=== PATIENT | male | born 1970 | race Caucasian/White ===

== ENCOUNTER → 2022-08-05 12:36 | Outpatient (BNVA) | payer BC, SELFPAY | PROVIDERS: Visit Provider Nurse Practitioner Family | DX: M47.812 Spondylosis without myelopathy or radiculopathy, cervical region (principal); M54.2 Cervicalgia; G43.909 Migraine, unspecified, not intractable, without status migrainosus | CPT/HCPCS: 72040 ==

== ENCOUNTER → 2022-09-01 08:04 | Outpatient (BNVA) | payer BC, SELFPAY | PROVIDERS: PCP Nurse Practitioner Family; Visit Provider Orthopaedic Surgery | DX: M25.562 Pain in left knee (principal); M25.561 Pain in right knee | CPT/HCPCS: 73560; 73565 ==

== ENCOUNTER → 2022-10-06 09:15 | Outpatient (BNVA) | payer BC, SELFPAY | PROVIDERS: PCP Nurse Practitioner Family; Visit Provider Orthopaedic Surgery | DX: S46.011A Strain of muscle(s) and tendon(s) of the rotator cuff of right shoulder, initial encounter (principal); X58.XXXA Exposure to other specified factors, initial encounter | CPT/HCPCS: 73030 ==

== ENCOUNTER 2022-11-09 08:29 | Outpatient (CLI) | payer BC, SELFPAY ==
--- NOTE | 2022-11-09 08:00 | MR_ITS ---
WS: [id number] MRI RIGHT SHOULDER HISTORY: Pain and weakness COMPARISON: Radiographs 10/06/2022 TECHNIQUE: Multiplanar sequences of the shoulder joint are submitted. Moderate AC joint narrowing with soft tissue hypertrophy and mild encroachment upon the supraspinatus . Moderate bursal distention of the subacromial and subdeltoid bursa with small loose bodies also pre sent within the fluid. No os acromion. Biceps tendon in normal position with mild fluid in the biceps tendon sheath. High riding humeral head complete supraspinatus tendon tear with retraction to the superior humeral h ead. There is thinning of the retracted tendon. There is very slight increased signal also within the retracted tendon. Mild supraspinatus atrophy with no edema. Abnormal distal infraspinatus tendon. In creased signal at the attachment site with additional marked fraying along the distal 3 to 4 cm of th e tendon with fluid extending along the tendon. Subscapularis tendon is intact. Loss of the normal cartilage surrounding the humeral head. No fracture. Abnormal configuration of the superior labrum. There is also increased signal in the superior labrum. MR/MR shoulder RT wo con* [id number] IMPRESSION: 1. 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 2. Complete tear supraspinatus tendon with retraction to the superior humeral head. Fraying and thinning of the distal supraspinatus tendon. 3. Large insertion site tear of the infraspinatus tendon. The distal 3 to 4 cm of the infraspinatus tendon with abnormal signal and surface fraying. 4. Moderate bursal distention of the subacromial and subdeltoid bursa with loo se bodies. 5. Abnormal superior labrum. 6. Mildly high riding humeral head. 7. Mild supraspinatus muscle atrophy. 8. Mild biceps tendon tenosynovitis.
== END 2022-11-09 08:30 | disposition home or self-care (01) ==
LOC: RAD 08:38
PROVIDERS: PCP Nurse Practitioner Family; Visit Provider Orthopaedic Surgery
DX: M75.121 Complete rotator cuff tear or rupture of right shoulder, not specified as traumatic (principal); M25.511 Pain in right shoulder
CPT/HCPCS: 73221

== ENCOUNTER 2022-12-09 07:44 | Day surgery (SDC) | payer BC, SELFPAY ==
[2022-12-08 16:49] VITALS: BMI 33.7
[2022-12-09] VITALS (7 sets, daily range): BP systolic 147–173; BP diastolic 76–96; PULSE 74–80; RESP 16–17; TEMP 36.1–36.5; O2SAT 93–100
[2022-12-09] MEDS: acetaminophen 500 mg Tablet 1000 MG PO (08:20)
[2022-12-09] MEDS: sodium chloride 0.9% 1,000 ML 30 ML IV ×2 (08:21→12:21)
[2022-12-09] MEDS: gabapentin 300 mg Capsule PO (08:21)
[2022-12-09] MEDS: CELEcoxib 200 mg Capsule 400 MG PO (08:21)
--- NOTE | 2022-12-09 08:50 | ANES.PREANE2 ---
Pre-Anesthetic Assessment Height/Weight: Height 1.78 m Weight 106.594 kg Temp Pulse Resp BP Pulse Ox O2 Del Method 97.7 F 80 16 148/76 96 12/09/22 08:13 12/09/22 08:13 12/09/22 08:13 12/09/22 08:13 12/09/22 08:13 12/09/22 08:13 Preop Diagnosis: Rotator cuff tear right shoulder Operation Date: 12/09/22 09:25 Proposed Procedures p right shoulder arthroscopy with rotator cuff repair/ 03125,M75.101(Right) - Jose Jay MD s Rotator Cuff Repair - Arthroscopy(Right) - Jose Jay MD Familial anesthetic complications: None Was Beta Jose Maria taken within 24 hours: N/A Was Clonidine taken within 24 hours: N/A Last intake: Intake Last Liquid Date 12/09/22 Last Liquid Time 04:00 Last Solid Date 12/08/22 Last Solid Time 18:00 Social Tobacco and No alcohol Exam alert, oriented x 3, clear to auscultation bilaterally and regular rate & rhythm Airway Mallampati: Class III Dentition: full Comments: Comments: full holloway CV/HEM Hypertension > 4 METS Anesthetic Plan ASA status: 2 Anesthesia: General and Regional (specify below) Risk of > 500 ml blood loss (7ml/kg in children): No Medications/Allergies Home Medications Medication Instructions Recorded Confirmed Last Taken Type naproxen 500 mg tablet (Naprosyn) 500 mg PO BID 1 month #60 tabs 09/01/22 12/09/22 12/07/22 Rx tramadol 50 mg tablet 50 mg PO Q6H PRN pain 7 days #30 12/03/22 12/09/22 12/09/22 04:00 Rx tabs lisinopril 20 mg tablet 20 mg PO DAILY 12/08/22 12/09/22 12/08/22 History Allergies Allergy/AdvReac Type Severity Reaction Status Date / Time No Known Allergies Allergy Verified 12/09/22 08:06 Current Medications Generic Name Dose Route Start Last Admin Trade Name Freq PRN Reason Stop Dose Admin Sodium Chloride 1,000 mls @ 30 mls/hr 12/09/22 08:00 12/09/22 08:21 Sodium Chloride 0.9% IV 12/10/22 07:59 30 mls/hr .Q24H [facility] Administration PFSH Anesthesia Social History Smoking and tobacco status: never smoked Alcohol intake: never Data Anesthesia Cardiac Studies: No Data to Display
--- NOTE | 2022-12-09 08:51 | ANES.PROC ---
Anesthesia Procedures Procedure/Date: 12/09/22 Nerve Block ^: Nerve Block 1: Main Anesthesia: general anesthesia Time Out Performed: Yes Consent: requested by attending/covering physician, from patient, risks and benefits reviewed and patient agrees to proceed Nerve block location: interscalene (R) Anesthesia monitors applied: pulse oximetry Nerve block position: semi sitting Anesthetic Used: ropivicaine 0.5% (20 ml) and with decadron (4 mg) Ultrasound used to: recognize landmarks, visualize and ID brachial plexus, in supraclavicular region and visualize and ID interscalene groove Nerve Stimulator Used?: No Interscalene/Femoral BLK: 2 stimuplex 22 g needle used for position and inplane approach, visualize local anesthetic spread and no vascular puncture identified Injection: neg aspiration of heme Patient Tolerated Procedure: well Complications: none
--- NOTE | 2022-12-09 09:44 | W.PM.OPSUD ---
Surgery/Procedure H&P Update DATE OF PROCEDURE: December 09, 2022 DATE H&P PERFORMED: 11/23/22 H&P UPDATE INFORMATION: I have reviewed H&P completed within last 30 days PREOP DIAGNOSIS: Rotator cuff tear right shoulder PLANNED PROCEDURE: Operation Date: 12/09/22 09:25 Proposed Procedures p right shoulder arthroscopy with rotator cuff repair/ 51249,M75.101(Right) - Jose Jay MD s Rotator Cuff Repair - Arthroscopy(Right) - Jose Jay MD
[2022-12-09] MEDS: ceFAZolin 2,000 MG in sodium chloride 0.9% (plus) 50 ML 100 MG IV (09:55)
--- NOTE | 2022-12-09 12:06 | P.OP_ITS ---
Operative Report Date of procedure: December 09, 2022 Pre-op diagnosis: Preop Diagnosis Rotator cuff tear right shoulder Post-op diagnosis: same Post-op diagnosis: Right rotator cuff tear, impingement Procedure done: Right shoulder arthroscopic rotator cuff repair, subacromial decompression Implants: [employer] Multifix 5.5 mm anchors x2, [employer] Helicoil 4.5 mm anchors x3 Pathology: none sent Surgeon: Jose Jay Anesthesia: General and Nerve Block (Interscalene block) Estimated blood loss (mL): 5 Findings: The patient had a large tear of the rotator cuff beginning at the biceps tendon extending posteriorly over a distance of approximately 2-1/2 cm with retraction of the tendon centrally to the nearly the glenoid he had spurring of the leading edge of his acromion. Condition: stable Disposition: PACU Brief History: 52-year old male with a history of right shoulder pain for 10 years. He states in late September he fell on ice with a pop and severe pain and shoulder weakness. An MRI revealed tearing of his rotator cuff. He is taken to the operating room for surgical repair to improve pain and found Procedure: The patient was taken to the operating room after he was given a interscalene block in holding. He was given 2 g of Ancef and a general anesthesia. He was positioned in the lateral position with his right arm in 15 pounds of traction. He was prepped and draped in the usual fashion. A timeout was performed. A posterior portal was made 2 cm inferior medial to the posterior corner of the acromion. A scope cannula and trocar were driven into the glenohumeral joint. Diagnostic portion of the glenohumeral arthroscopy was performed. The large tear of the rotator cuff was identified. The glenohumeral arthroscopy was performed with no labral tearing or degenerative changes noted. The arthroscope was then directed to the subacromial space and a lateral working portal created with a scalpel blade. Bursal tissue was removed with the incisor shaver initially defining well the posterior extent of the tear. Bursal adhesions tendon the anterior extent of the tear and these were debrided back to the biceps where the edge of the subscapularis tendon could be identified. With retraction the tendon was sufficiently mobile where he could be mobilized to bone and a decision was made to make a direct tendon to bone repair with a double row construct. The subacromial space was very narrow anteriorly. A 5 5 acromionizer was introduced and spurs were removed from the anterior inferior acromion to make room for the repair. Altogether approximately 5 mm of anterior inferior acromion was removed. the greater tuberosity footprint was debrided with incisor shaver to vascular bone. Working through a lateral stab wound a helical 4.5 mm anchor was placed. Through the lateral portal each suture was removed and passed through the posterior rotator cuff with a [employer] FirstPass suture passer passing the 2 sutures approximately 6 mm from the edge of the tendon approximately 5 mm apart. This was repeated with a second more centralized anchor and a final anchor placed just posterior to the biceps tendon. Each suture was secured with a sliding Willis knot and alternating half hitches drawing the medial rotator cuff to the tuberosity. Next 1 suture from each anchor was drawn through the lateral cannula. A MultiFix anchor was placed laterally between the posterior to anchors all 3 sutures and secured. A second MultiFix anchor was placed l aterally but tween the anterior 2 anchors and secured. Both anchors through the lateral cuff down to the debrided bone. The shoulder was irrigated with saline. Portals were closed with 3-0 Prolene. Sterile dressings were applied. The patient was placed in abduction pillow, extubated, and taken to in stable condition.
--- NOTE | 2022-12-09 13:36 | ANE.PACU2 ---
Inpatient post-anesthesia follow up: Airway intact: Yes Vital signs: Temperature 97.0 F Pulse Rate 76 Respiratory Rate 17 Blood Pressure 173/96 Pulse Oximetry 95 Oxygen Delivery Me thod Room Air Oxygen Flow Rate 3 Fraction of Inspir ed Oxygen Hydration adequate: Yes Nausea and vomiting: No Pain level: 1 Mental status: Baseline
== END 2022-12-09 13:15 | disposition home or self-care (01) ==
PROVIDERS: PCP Nurse Practitioner Family; Visit Provider Orthopaedic Surgery
PROC: (CPT 29805; principal; 2022-12-09 09:25)
PROC: (CPT 29827; 2022-12-09 09:25)
DX: M75.101 Unspecified rotator cuff tear or rupture of right shoulder, not specified as traumatic (principal); M75.41 Impingement syndrome of right shoulder; I10 Essential (primary) hypertension
CPT/HCPCS: 29826; 29827; C1713; J0330; J0690; J1100; J2250; J2370; J2405; J2704; J2795; J3010; J3490; J7030

== ENCOUNTER 2023-01-05 11:59 | Outpatient (RCR) | payer BC, SELFPAY | END 2023-02-02 23:59 | disposition home or self-care (01) | LOC: SPT 11:59 | PROVIDERS: Visit Provider Nurse Practitioner Family | DX: Z47.89 Encounter for other orthopedic aftercare (principal) | CPT/HCPCS: 97110; 97161 ==

== ENCOUNTER 2023-02-03 06:00 | Outpatient (RCR) | payer BC, SELFPAY | END 2023-03-04 23:59 | disposition home or self-care (01) | LOC: SPT 06:00 | PROVIDERS: Visit Provider Nurse Practitioner Family | DX: M75.121 Complete rotator cuff tear or rupture of right shoulder, not specified as traumatic (principal) | CPT/HCPCS: 97110 ==